=== PATIENT | male | born 1985 | race African-American/Black ===

== ENCOUNTER 2019-05-28 18:20 | Emergency (ER) | payer SELFPAY ==
[~2019-05-28] VITALS: Ht 157.5 cm; Wt 106.6 kg
[2019-05-28] MEDS ORDERED: CLOP75TA4 MT (18:25)
[2019-05-28] MEDS ORDERED: FOLI-43 MT (18:25)
[2019-05-28] MEDS ORDERED: folic acid (18:25)
[2019-05-28] MEDS ORDERED: ONDANSETRON HCL 4MG/2ML INJ IV STA ×2 (18:43→21:31)
[2019-05-28] MEDS ORDERED: MORPHINE SULFATE 4 MG/ML CPJ (NOT FOR IM USE) IV STA ×2 (18:43→21:31)
[2019-05-28] MEDS ORDERED: METHYLPREDNISOLONE SOD SUCC 125 MG/2 ML VIAL IV ONE (18:45)
[2019-05-28] MEDS ORDERED: SODIUM CHLORIDE 0.9% 1,000 ML IV ONE (19:15)
[2019-05-28 19:24] LABS: BASOPHILS % 0.7 % (0.0-2.0); EOSINOPHILS % 2.2 % (0.0-5.0); HEMATOCRIT. 34.2 % (42.0-52.0); HEMOGLOBIN. 11.5 g/dL (14.0-18.0); MEAN CORPUSCULAR HEMOGLOBIN 28.5 pg (28.0-32.0); MEAN CORPUSCULAR VOLUME 84.6 fL (80.0-94.0); MEAN PLATELET VOLUME 8.4 fl (7.4-10.4); NEUTROPHILS % 71.1 % (40.0-76.0); PLATELET 620 x1000/uL (130-400); RED BLOOD CELL COUNT 4.05 mill/uL (4.7-6.1); RED CELL DISTRIBUTION WIDTH 15.3 % (11.6-14.6)
[2019-05-28 19:31] LABS: CHLORIDE 109 mEq/L (98-107)
[2019-05-28 19:32] LABS: INR 1.1; PROTHROMBIN TIME 11.2 sec (9.6-11.0)
[2019-05-28 19:34] LABS: ETHANOL BLOOD < 10 mg/dL
[2019-05-28 19:37] LABS: LDL CHOLESTEROL 83 mg/dL (5-100)
[2019-05-28] MEDS ORDERED: ALTEPLASE 100MG/VIAL IV NR (19:47)
[2019-05-28] MEDS ORDERED: ALTEPLASE 81 MG in BAG 1 EACH IV NR (20:02)
[2019-05-28] MEDS ORDERED: KETOROLAC 15MG/ML VIAL IV ONE (20:30)
[2019-05-28] MEDS ORDERED: DIPHENHYDRAMINE 12.5MG/5ML UDC PO ONE (23:00)
[2019-05-28 23:46] VITALS: BP 157/87
== END 2019-05-28 23:55 | disposition left against medical advice (07) ==
LOC: ER 18:20 → EDBEDREQSVC 20:42 → EDBEDREQTM 20:42 → EDBEDREQ 20:42 → CANBEDREQ 21:30 → ER 23:55
DX: I63.9 Cerebral infarction, unspecified (principal); G81.94 Hemiplegia, unspecified affecting left nondominant side; R29.810 Facial weakness; D57.00 Hb-SS disease with crisis, unspecified; Z95.828 Presence of other vascular implants and grafts; R00.0 Tachycardia, unspecified; Z86.73 Personal history of transient ischemic attack (TIA), and cerebral infarction without residual deficits; Z91.041 Radiographic dye allergy status; Z88.8 Allergy status to other drugs, medicaments and biological substances
CPT/HCPCS: 36415; 37195; 70450; 71045; 80053; 80320; 82962; 83721; 84484; 85025; 85044; 85610; 85660; 93005; 96374; 96375; 96376; 99291; J1885; J2270; J2405; J2930; J2997; J7030; Q0163; G0480